=== PATIENT | male | born 1965 | race Caucasian/White ===

== ENCOUNTER 2017-02-18 11:01 | Emergency (ER) | payer SELFPAY ==
[~2017-02-18] VITALS: Wt 71.5 kg
[2017-02-18 11:03] VITALS: Wt 71.5 kg
[2017-02-18 11:48] VITALS: BP 123/81; PULSE 85; RESP 16
--- NOTE | 2017-02-18 11:52 | ERD ---
ER Documentation Chief Complaint Date/Time DATE: 02/18/17 TIME: 11:49 Chief Complaint seen at clinic for wellness exam, +cough, sore throat, did ekg = abnorml HPI Patient is a 51-year-old male who presents to the ED with her for referral from his clinic [facility] for evaluation. Patient states that he went there for URI symptoms complaining of a cough, congestion and runny nose and was given medicine. However they did an EKG and it showed bradycardia, pulse of 42. Patient was sent here for further evaluation. Patient states that he is feeling fine and is asymptomatic. Denies dizziness or syncopal episode. Denies chest pain or shortness of breath or difficulty breathing. Denies heart conditions in the family. He states that he runs and headaches on a regular basis. No other complaints. No leg pain or swelling. ROS All systems reviewed and are negative except as per history of present illness. PMhx/Soc History of Surgery: No Anesthesia Reaction: No Hx Neurological Disorder: No Hx Respiratory Disorders: No Hx Cardiac Disorders: No Hx Psychiatric Problems: No Hx Miscellaneous Medical Probl: No Hx Alcohol Use: No Hx Substance Use: No Hx Tobacco Use: No Smoking Status: Never smoker Physical Exam Vitals Vital Signs Date Time Temp Pulse Resp B/P Pulse Ox O2 Delivery O2 Flow Rate FiO2 02/18/17 11:48 55 16 121/76 98 Room Air 61 124/81 85 123/81 02/18/17 11:03 97.5 66 20 148/86 99 Physical Exam GENERAL: Well-developed, well-nourished male. Appears in no acute distress. HEAD: Normocephalic, atraumatic. EYES: Pupils are equally reactive bilaterally. EOMs grossly intact. No conjunctival erythema. ENT: Moist mucous membranes. No uvula deviation. No kissing tonsils. No exudates. NECK: Supple. No lymphadenopathy or thyromegaly. No meningismus. negative kernig. negative brudinski. LUNG: Clear to auscultation bilaterally. No rhonchi, wheezing, rales or coarse breath sounds. HEART: Regular rate and rhythm. No murmurs, rubs or gallops. ABDOMEN: No scars, ecchymosis or rashes noted. Soft, nontender, and nondistended. Positive bowel sounds in all four quadrants. No rebound tenderness , no guarding. (-) McBurneys point tenderness. No CVA tenderness. BACK: No midline tenderness. Extremities: Equal pulses bilaterally. No peripheral clubbing, cyanosis or edema. No unilateral leg swelling. NEUROLOGIC: Alert and oriented. Moving all four extremities. 5/5 strength in all extremities. Normal speech. Steady gait. SKIN: Normal color. Warm and dry. No rashes or lesions. Capillary refill < 2 seconds Procedures/MDM ER COURSE: I kept the patient and/or family informed of laboratory and diagnostic imaging results throughout the emergency room course. EKG performed, read by Dr. Hare 68bpm, normal sinus rhythm, normal axis, no acute ST segment changes, no T wave inversion MEDICAL DECISION MAKING: This is a 51-year-old male who presents with 1 episode of bradycardia at clinic. Vital signs were reviewed. Patient is afebrile. Patient is not hypoxic. Patient is not toxic or ill-appearing. Patient has a pulse of 66 with a blood pressure of 148/86 at intake. Patient is asymptomatic. Denies dizziness or syncopal episode. Denies chest pain or cough or shortness of breath. Patient has asymptomatic bradycardia with no bradycardia here in the exam room. Patient was walking around without any complaints. I reexamined patient after patient walked around and he stated he had no symptoms. Patient was ready for outpatient therapy and will return for any new symptoms. Low suspicion for ACS , PE, AAA, dissection, DVT,syncope. I consulted with Dr. Hare who reveiwed EKG and agrees with outpatient management plan. DISCHARGE: At this time, patient is stable for discharge and outpatient management with no new complaints during the ER course. Patient was sent home with copy of EKG.. Patient will be discharged home with instructions to recheck for new or worsening symptoms such as fever, nausea, weakness, LOC and to follow up with primary care in the next 1-2 days. Patient was advised to return to the ER for any new or worsening symptoms. Plan was discussed and patient and/or family understands and agrees. Home instructions were given. Departure Diagnosis: Primary Impression: Bradycardia Condition: Stable MARQUES WARD PA-C Feb 18, 2017 11:52
== END 2017-02-18 12:10 | disposition home or self-care (01) ==
LOC: FTE 11:01
DX: R00.1 Bradycardia, unspecified (principal)
CPT/HCPCS: 93005